=== PATIENT | female | born 1995 | race Caucasian/White ===

== ENCOUNTER 2018-04-14 10:23 | Inpatient (IN) | payer MEDICAID, SELFPAY ==
[2018-04-14 10:47] VITALS: BP 142/91; PULSE 116; RESP 18; TEMP 37.2; O2SAT 98; BMI 22.4; BMI 22.5
--- NOTE | 2018-04-14 11:45 | PCM.HP.STD ---
Problem List (1) Polysubstance abuse Status: Acute History of Present Illness Date of Admission: 04/14/18 Chief Complaint: wants to quit drugs The patient is a 22 year old F presents to [facility] for seeking drug treatment. Patient states that she uses methamphetamines and is a 2 days ago and has not slept since then. Patient initially states that she does not use heroin all time only to state that she uses it every day and shoots up. Initially said that she does not drink daily but then said that she drinks liquor per day. Patient's last drink was 3 shots of fireball 3 days ago. Patient's given going off on tangents about being too concerned about family and not knowing the whereabouts of her brother and mother. Also expressed concern about her baby daddy, ex-fianc? and ex-boyfriend who I believe are different people. [] Past Medical History Medical History: Medical History (Last Updated 04/14/18 @ 11:53 by Mac Rosa DO) Anxiety F41.9 Polysubstance (excluding opioids) dependence F19.20 Psychiatric History: No pertinent psych hx Lives: With Family Smoking Status: Heavy Smoker (>10/day) Tobacco Use: Cigarettes Alcohol: Heavy Drugs: Heroin, Marijuana, - - methamphetamines - *Family History Sibling History Items: - - alcoholic brother. Review of Systems Constitutional: Denies: Anorexia, Chills, Fever, Night Sweats Eyes: Denies: Blurred vision, Double vision HEENT: Denies: Head Aches, Sinus Congestion, Sinus Drainage Cardiovascular: Denies: Chest Pain, Palpitations Respiratory: Denies: Cough, Shortness of breath at rest, Sputum production Gastrointestinal: Denies: Abdominal Pain, Nausea, Vomiting Genitourinary: Denies: Dysuria Musculoskeletal: Denies: Joint Pain, Joint Tenderness Skin: Denies: Rash, Wounds Psychiatric: Denies: Anxiety, Depression Hematologic/ Lymphatic: Denies: Easy Bruising, Easy Bleeding Comment: All review of systems are negative except as mentioned in the history of present illness and the other review of systems. VTE Information - Inpt Only VTE Present on Admission: No VTE Mechan Device Prophylaxis: None VTE Pharm Prophylaxis ordered?: No Patient Problems: Active and Suspected Problems Polysubstance abuse (Acute) - Physical Exam General: Alert, - - Extremely anxious HEENT: Atraumatic, Normocephalic Oral: Moist Mucosa, No Gingival or Mucosal Lesions/ Ulcerations Neck: No Nodes, Thyroid Normal Size and Texture Lungs: Clear to auscultation, Normal air movement, No rhonchi, No wheeze Cardiovascular: Regular rate, Regular Rhythm, Normal S1, Normal S2, No murmurs Abdomen: Bowel Sounds Present, Soft, Non Tender, Non-Distended, No Hepato-splenomegaly Extremities: No edema, No Calf Tenderness Skin: No rashes, No breakdown Musculoskeletal: No Tenderness to Palpation of Joints or Extremities, No Muscle Wasting Psych/Mental Status: Normal Affect, Appropriate Vital Signs Temp Pulse Resp BP Pulse Ox 37.2 C 116 H 18 142/91 H 98 04/14/18 10:47 04/14/18 10:47 04/14/18 10:47 04/14/18 10:47 04/14/18 10:47 Oxygen Delivery Method Room Air Weight: 61.235 kg Body Mass Index (BMI) 22.4 Assessment/Plan All Active Problems Polysubstance abuse (Acute) 1. Polysubstance abuse Patient states that she shoots up heroin all the time but has no obvious track cheney. I am concerned that the patient's may not actually be using heroin as much as she states and may be just saying this so that she can be an and [facility]. She declines Subutex saying that she does not want it. It was explained to her that if she is in that I would not be able to keep ear for the allotted 3 days that is involved with the Subutex taper. Patient also states that she drinks 1-3 bottles of liquor per day. Initial reports that she did not drink that much but her last drink was 3 days ago. We will monitor I am not can put the patient on any Librium or Ativan at this time unless it becomes clear that patient is going through acute alcohol withdrawal which it certainly is not clear at this time. Patient certainly requires further management as outpatient for her polysubstance abuse. Patient describes a rather indiscriminate use of drugs, including bath salts, benzodiazepines and gabapentin [facility] to further facilitate Management 2. Anxiety I did discuss with the patient that she should be on something for anxiety but also seek out counseling. Did recommend Zoloft. Patient initially said no but then lined. I will start Zoloft but I would not be surprised the patient does decline it. Does need outpatient counseling as I feel that she may be self-medicating with her multiple drugs. Code Visit Inpatient E&M: 32705 Init Hosp L2
--- NOTE | 2018-04-14 11:49 | HP.PCM_ITS ---
Problem List (1) Polysubstance abuse Status: Acute History of Present Illness Date of Admission: 04/14/18 Chief Complaint: wants to quit drugs The patient is a 22 year old F presents to [facility] for seeking drug treatment. Patient states that she uses methamphetamines and is a 2 days ago and has not slept since then. Patient initially states that she does not use heroin all time only to state that she uses it every day and shoots up. Initially said that she does not drink daily but then said that she drinks liquor per day. Patient's last drink was 3 shots of fireball 3 days ago. Patient's given going off on tangents about being too concerned about family and not knowing the whereabouts of her brother and mother. Also expressed concern about her baby daddy, ex-fianc? and ex-boyfriend who I believe are different people. [] Past Medical History Medical History: Medical History (Last Updated 04/14/18 @ 11:53 by Mac Rosa DO) Anxiety F41.9 Polysubstance (excluding opioids) dependence F19.20 Psychiatric History: No pertinent psych hx Lives: With Family Smoking Status: Heavy Smoker (>10/day) Tobacco Use: Cigarettes Alcohol: Heavy Drugs: Heroin, Marijuana, - - methamphetamines - *Family History Sibling History Items: - - alcoholic brother. Review of Systems Constitutional: Denies: Anorexia, Chills, Fever, Night Sweats Eyes: Denies: Blurred vision, Double vision HEENT: Denies: Head Aches, Sinus Congestion, Sinus Drainage Cardiovascular: Denies: Chest Pain, Palpitations Respiratory: Denies: Cough, Shortness of breath at rest, Sputum production Gastrointestinal: Denies: Abdominal Pain, Nausea, Vomiting Genitourinary: Denies: Dysuria Musculoskeletal: Denies: Joint Pain, Joint Tenderness Skin: Denies: Rash, Wounds Psychiatric: Denies: Anxiety, Depression Hematologic/ Lymphatic: Denies: Easy Bruising, Easy Bleeding Comment: All review of systems are negative except as mentioned in the history of present illness and the other review of systems. VTE Information - Inpt Only VTE Present on Admission: No VTE Mechan Device Prophylaxis: None VTE Pharm Prophylaxis ordered?: No Patient Problems: Active and Suspected Problems Polysubstance abuse (Acute) - Physical Exam General: Alert, - - Extremely anxious HEENT: Atraumatic, Normocephalic Oral: Moist Mucosa, No Gingival or Mucosal Lesions/ Ulcerations Neck: No Nodes, Thyroid Normal Size and Texture Lungs: Clear to auscultation, Normal air movement, No rhonchi, No wheeze Cardiovascular: Regular rate, Regular Rhythm, Normal S1, Normal S2, No murmurs Abdomen: Bowel Sounds Present, Soft, Non Tender, Non-Distended, No Hepato- splenomegaly Extremities: No edema, No Calf Tenderness Skin: No rashes, No breakdown Musculoskeletal: No Tenderness to Palpation of Joints or Extremities, No Muscle Wasting Psych/Mental Status: Normal Affect, Appropriate Vital Signs Temp Pulse Resp BP Pulse Ox 37.2 C 116 H 18 142/91 H 98 04/14/18 10:47 04/14/18 10:47 04/14/18 10:47 04/14/18 10:47 04/14/18 10:47 Oxygen Delivery Method Room Air Weight: 61.235 kg Body Mass Index (BMI) 22.4 Assessment/Plan All Active Problems Polysubstance abuse (Acute) 1. Polysubstance abuse * Patient states that she shoots up heroin all the time but has no obvious track cheney. I am concerned that the patient's may not actually be using heroin as much as she states and may be just saying this so that she can be an and [facility]. She declines Subutex saying that she does not want it. It was explained to her that if she is in that I would not be able to keep ear for the allotted 3 days that is involved with the Subutex taper. * Patient also states that she drinks 1-3 bottles of liquor per day. Initial reports that she did not drink that much but her last drink was 3 days ago. We will monitor I am not can put the patient on any Librium or Ativan at this time unless it becomes clear that patient is going through acute alcohol withdrawal which it certainly is not clear at this time. * Patient certainly requires further management as outpatient for her polysubstance abuse. Patient describes a rather indiscriminate use of drugs, including bath salts, benzodiazepines and gabapentin * [facility] to further facilitate Management 2. Anxiety * I did discuss with the patient that she should be on something for anxiety but also seek out counseling. * Did recommend Zoloft. Patient initially said no but then lined. I will start Zoloft but I would not be surprised the patient does decline it. * Does need outpatient counseling as I feel that she may be self-medicating with her multiple drugs. Code Visit Inpatient E&M: 28460 Init Hosp L2
--- NOTE | 2018-04-14 11:49 | NURSING ---
NO VACCINATIONS TO RECORD
[2018-04-14 12:08] LABS: Absolute Lymphocyte Count 1.74 X10^3/ul (0.83-4.51); Basophil# 0.03 X10^3/uL; Basophil% 0.3 % (0-1); Eosinophil# 0.06 X10^3/uL; Eosinophils% 0.6 % (0-5); Hematocrit 43.4 % (37-47); Hemoglobin 14.9 g/dl (12.0-15.0); Lymphocyte # 1.74 X10^3/ul (4.0); Lymphocyte % 16.5 % (19-41); Mean Corp Hgb Conc 34.3 g/gl (32-36); Mean Corpuscular Hgb 30.2 pg (27.0-32.0); Mean Platelet Vol. 12.1 fl (6.2-12.0); Monocyte# 0.72 X10^3/uL; Monocyte% 6.8 % (0-10); Neutrophil # 7.99 X10^3/uL (2.7-7.7); Neutrophil % 75.6 % (47-70); Platelet Count 199 K/mm3 (150-450); RBC Distribution Width CV 12.6 % (11.6-14.6); RBC Distribution Width SD 40.7 fl (35.1-43.9); Red Blood Count 4.93 M/mm3 (4.2-5.4); White Blood Count 10.6 K/mm3 (4.4-11.0)
[2018-04-14 12:10] LABS: POSITIVE COUNT NO; POSITIVE DIFFERENTIAL NO; POSITIVE MORPHOLOGY NO
[2018-04-14 12:26] LABS: AST(SGOT) 15 U/L (15-37); Alanine Aminotransfer ALT/SGPT 18 U/L (13-56); Albumin, Serum 4.3 g/dL (3.2-5.0); Alkaline Phosphatase 114 U/L (45-117); Anion Gap 7 (5-15); BUN 14 mg/dL (7-18); BUN/Creat Ratio 19.1 RATIO (10-20); Calcium,Total 8.9 mg/dL (8.5-10.1); Chloride 104 mmol/L (98-107); Creatinine, Serum 0.73 mg/dL (0.55-1.02); EST Glomerular Filtration Rate 104 mL/min (>60); Est Glom Filt Rate - Afr Amer 126 mL/min (>60); Estimated Creatinine Clearance 107.85 ml/min; Globulin 4.1 g/dL (2.2-4.2); Glucose 79 mg/dL (74-106); Potassium 4.3 mmol/L (3.5-5.1); Protein, Total 8.4 g/dL (6.4-8.2); Sodium Level 137 mmol/L (136-145)
[2018-04-14 12:29] LABS: Pregnancy, Serum, hCG Quali. NEGATIVE Negative (0-9 Nonpreg)
[2018-04-14 14:00] VITALS: BP 142/91; PULSE 116; RESP 18; TEMP 37.2
--- NOTE | 2018-04-14 14:11 | DCINST_ITS ---
- Discharge Diagnoses Current Active Problems: Current Active and Chronic Problems (Last Updated 04/14/18 @ 11:53 by Mac Rosa DO) Polysubstance abuse (Acute) You will use the following diet at home:: No restrictions Your food should be the consistency of: Regular Your liquids should be the consistency of: Regular/Thin Discharge Activity: May not drive while taking narcotic pain medications., - - No driving while under the influence. Medications to take at Discharge Multivitamin [Daily Multiple Vitamin] 1 each PO DAILY #1 tablet 04/14/18 Sertraline HCl [Zoloft] 50 mg PO DAILY #30 tab 04/14/18 The following prescriptions were given: Multivitamin [Daily Multiple Vitamin] 1 each PO DAILY #1 tablet Sertraline HCl [Zoloft] 50 mg PO DAILY #30 tab Primary Care Physician: Care Physician,No Primary [Primary Care Provider] - Test Results: Test results from this visit will be discussed in further detail at your follow- up appointment, if applicable. Please Follow Up With: Psychiatry When: 1-2 weeks Proposed Discharge Date: 04/14/18
--- NOTE | 2018-04-14 14:14 | DS.PCM_ITS ---
Discharge Date and Diagnosis - Problem List Patient Problems: Active and Suspected Problems (Last Updated 04/14/18 @ 11:53 by Mac Rosa DO ) Anxiety (Acute) Polysubstance abuse (Acute) Date of Admission: 04/14/18 Date of Discharge: 04/14/18 - Primary Discharge Diagnosis Active and Suspected Problems (Last Updated 04/14/18 @ 11:53 by Mac Rosa DO ) Anxiety (Acute) Polysubstance abuse (Acute) Hospital Course and Treatment Summary of Care Provided: The patient is a 22 year old F presents seeking treatment for her drug abuse. History was essentially unreliable as is concerning the stating that she was drinking 1-2 bottles of liquor a day and injecting heroin but initial statements were to the contrary. Patient stated that you need to lie to stay in here. This is really unclear the patient was actually being truthful in regards to her intake of alcohol and heroin. Patient was very open that she indiscriminately use drugs whenever she can whenever and whatever she can get her hands on. Patient beginning was anxiety while she was here which she denied having an issue with but did express excessive worry over family and baby daddies, ex-fianc? and ex-boyfriend. Patient also expressed concern over her son too. Subutex was offered to the patient but she declined. Patient did agree initially to staying here to see how she would do with her alcohol withdrawal if indeed she does drink that much she should have some potentially more so withdrawal symptoms her last drink was 2-3 days prior to this hospitalization, though granted given the patient's already changing story, that history may be completely unreliable. Patient later stated that she wanted to go home and but did not express any suicidal or homicidal ideation. As this is a voluntary program and patient has patient at this time patient is being discharged. I did recommend the patient be on Zoloft. Is unclear the patient will actually take it or not patient certainly requires further psychiatric counseling. [] Discharge Diet: No Restrictions Discharge Activity: May not drive while taking narcotic pain medications., - - No driving while under the influence. Home Medications: Medications to take at Discharge Multivitamin [Daily Multiple Vitamin] 1 each PO DAILY #1 tablet 04/14/18 Sertraline HCl [Zoloft] 50 mg PO DAILY #30 tab 04/14/18 Following Prescrptions Were Given to Patient: Multivitamin [Daily Multiple Vitamin] 1 each PO DAILY #1 tablet Sertraline HCl [Zoloft] 50 mg PO DAILY #30 tab Primary Care Physician: Care Physician,No Primary [Primary Care Provider] - Please Follow Up With: Psychiatry When: 1-2 weeks Disposition: Home Minutes spent on discharge:: 45 Patient Condition:: Good Medical Necessity - Tobacco Use Smoking Status: Heavy Smoker (>10/day) Tobacco Use: Cigarettes Meaningful Use Info Meaningful Use Diagnoses (Choose all that apply): None applicable Code Visit OBSV E&M: 62393 Observ/hosp same date L2
--- NOTE | 2018-04-14 14:33 | NURSING ---
NURSE REPORTS PT HAVING MORE ANXIETY THEN ON ADMISSION. KENNETH WITH [facility] CAME TO TALK WITH PT AND HE RETURNED TO DESK AND REPORTED THAT SHE WAS JUST HOLLERING AT HIM WELL. THIS NURSE WENT BACK X2 AND THE PT WAS ON THE PHONE OBVIOUSLY VERY AGITATED. THE SECOND TIME I WENT IN, I FINALLY INTERRUPTED HER AND ASKED HER TO PUT METAL FRAMER LIGHT WHEN SHE WAS FINISHED ON PHONE THAT I WOULD LIKE TO SPEAK WITH HER, SHE NODDED. I THEN WENT BACK A 3RD TIME ALMOST 30 MINUTES LATER AND PT WAS STILL ON THE PHONE. DR TAYLOR WAS NOTIFIED BY NEIL Wray RN, PTS NURSE OF INCREASED AGITATION AND REFUSAL TO TAKE MEDS.
--- NOTE | 2018-04-14 15:15 | NURSING ---
PT REPORTS THAT SHE WOULD NOW LIKE TO STAY HER FOR THE [facility] PROGRAM. SHE IS AGREEABLE TO TAKE NECESSARY MEDS TO HELP HER THROUGH HER WITHDRAWAL. COMMUNICATION SENT TO DR TAYLOR
--- NOTE | 2018-04-14 15:38 | PCA ---
per anaid/rn and jose/rn this senior technical project manager is going to let pt be and not disturb because pt is highly anxious
--- NOTE | 2018-04-14 15:42 | NURSING ---
THIS NURSE SPOKE WITH NEIL, FARM MACHINERY ERECTOR AT [facility], REQUESTING [place] TO COME SPEAK WITH PT. DR TAYLOR AWARE.
--- NOTE | 2018-04-14 15:51 | NURSING ---
LATE ENTRY - 1330 - PT PULLED OUT IV, CRYING, ANXIOUS, STATING SHE DOES NOT WANT TO STAY HERE. PT STATES SHE DOES NOT WANT TO BE ALONE. KENNETH FROM [facility] NOTIFIED & HE CAME UP TO SPEAK WITH PATIENT. PT TELLING KENNETH SAME. DR TAYLOR NOTIFIED & RECEIVED ORDER TO DC PATIENT DUE TO PT REMOVING IV, REFUSING MEDICATIONS & WANTING TO LEAVE. SAME EXPLAINED TO PATIENT. 1500 - PT STATING SHE WANTS TO STAY HERE. WILLING TO ALLOW IV TO BE PLACED AGAIN & TAKE MEDICATIONS ORDERED. DR TAYLOR NOTIFIED OF SAME & DC ORDER CANCELLED. WILL NOTIFY [facility] TO SEE PT.
[2018-04-14 16:07] VITALS: BP 117/71; PULSE 107; RESP 18; TEMP 36.8; O2SAT 99
[2018-04-14] MEDS: hydrOXYzine PAM 25 MG Capsule 50 MG PO ×2 (16:13→22:39)
[2018-04-14] MEDS: Sertraline 50 MG Tablet PO (16:13)
[2018-04-14] MEDS: Folic Acid 1 MG Tablet PO (16:13)
[2018-04-14] MEDS: Lactated Ringers 1,000 ML 125 ML IV (16:15)
[2018-04-14] MEDS: Thiamine Hydrochloride 100 MG Tablet PO (16:55)
[2018-04-14 17:08] LABS: Amphetamine Urine VISTA POSITIVE (<1000 ng/mL); Barbiturate Urine VISTA NEGATIVE (< 200 ng/mL); Benzodiazepine Urine VISTA NEGATIVE (< 200 ng/mL); Cocaine Urine VISTA NEGATIVE (< 300 ng/mL); Ecstacy Urine VISTA NEGATIVE (< 500 ng/mL); Methadone Urine VISTA NEGATIVE (< 300 ng/mL); PCP Urine VISTA NEGATIVE (< 25 ng/mL); THC Urine VISTA NEGATIVE (< 50 ng/mL); Vista UDS pH Range 6
[2018-04-14 18:00] VITALS: BP 117/71; PULSE 107; RESP 18; TEMP 36.8
--- NOTE | 2018-04-14 19:45 | NURSING ---
Pt requested that she not be interrupted tonight, as she needs to sleep.
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
--- NOTE | 2018-04-14 21:00 | NURSING ---
pt pulled out IV, is very anxious, states that she does not want to stay here, she wants to go get her son. Pt was informed that she would need to sign ALEXANDER papers than she could leave. Pt than decided that she wanted to stay in the [facility] program. Pt refused to have any assessments completed at this time and refused her medications. pt states that she just wants to get some sleep.
[2018-04-14] MEDS: traZODone 50 MG Tablet PO (22:28)
--- NOTE | 2018-04-15 04:45 | NURSING ---
Pt left AMA at this time. Dr. Canada made aware.
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
--- NOTE | 2018-04-15 05:46 | NURSING ---
This RN contacted by security to come to the main lobby to speak to pt. Pt found sitting in chairs by main entrance. Pt alert and talking clearly and appropriately. Speech fast and with flight of ideas. 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 Encouraged to return to [facility] unit to receive counseling from [facility] staff. Pt refuses to return to unit. States she has to get to the [facility] to get to my son so I can show him I can do better. Pt walks out of main entrance with belongings and walks toward [facility].
--- NOTE | 2018-04-15 06:01 | PCM.PN.BLA ---
Progress Note Was notified that patient signed herself AMA at 4:45 AM. Patient was being treated for polysubstance withdrawal.
== END 2018-04-15 04:45 | disposition left against medical advice (07) | DRG 433 ==
DX: F19.939 Other psychoactive substance use, unspecified with withdrawal, unspecified (principal); F41.9 Anxiety disorder, unspecified
CPT/HCPCS: 36415; 80053; 80307; 84703; 85025; 97802; J7120; A4216

== ENCOUNTER 2018-04-15 13:07 | Emergency (ER) | payer MEDICAID, SELFPAY ==
[2018-04-15] VITALS (8 sets, daily range): BP systolic 113–128; BP diastolic 74–99; PULSE 66–85; RESP 16–18; TEMP 36.9; O2SAT 96–100; BMI 22.4
--- NOTE | 2018-04-15 13:48 | ED.RN ---
PT HAD BLOOD WORK YESTERDAY HERE FOR ADMISSION. PT REFUSED MORE BLOOD WORK. DR. PADRON AWARE AND IS OKAY USING YESTERDAY'S BLOOD. NEW URINE PROVIDED AND SENT. PT IN ROOM, IN GOWN, CLOTHES REMOVED. DOOR OPEN. PT RESTING COMFORTABLY IN BED WITH BLANKETS.
--- NOTE | 2018-04-15 13:51 | ED.RN ---
DR. PADRON REITERATED NO NEED FOR 1:1 SITTER. PT DENIES SUICIDAL IDEATIONS.
[2018-04-15 14:11] LABS: Amphetamine Urine VISTA POSITIVE (<1000 ng/mL); Barbiturate Urine VISTA NEGATIVE (< 200 ng/mL); Benzodiazepine Urine VISTA NEGATIVE (< 200 ng/mL); Cocaine Urine VISTA NEGATIVE (< 300 ng/mL); Ecstacy Urine VISTA POSITIVE (< 500 ng/mL); Methadone Urine VISTA NEGATIVE (< 300 ng/mL); PCP Urine VISTA NEGATIVE (< 25 ng/mL); THC Urine VISTA NEGATIVE (< 50 ng/mL); Vista UDS pH Range 6
--- NOTE | 2018-04-15 14:18 | ED.RN ---
[facility] CALLED AND SOMEONE WILL BE OVER SOON TO EVAL PT
--- NOTE | 2018-04-15 16:13 | ED.VISSUMM ---
- ER Visit Summary Date of Service: 04/15/18 Chief Complaint: I want to talk to a psychiatrist History of Present Illness: The patient is a 22 F with a history of crystal meth abuse presents requesting to talk to a psychiatrist. She denies suicidal thoughts or ideation. She states that she has been feeling paranoid and wants to talk to somebody about it. Denies hallucinations. Physical Examination: There is no evidence of head trauma. Vitals are within normal limits. Lungs are clear bilaterally. Heart tones are regular and without murmur. Abdomen is soft and nontender. No focal or lateralizing neuro findings. Test Results: Tox screen is positive for methamphetamines. HCG is negative Emergency Department Course and Treatment: She is being evaluated by mental health. Care will be turned over to the oncoming physician Treatment Plan: Mental health evaluation in the emergency department Disposition: Pending mental health evaluation Impression: Initial encounter methamphetamine abuse This note was generated with [employer] dictation software. It may contain incorrect words, spelling, and punctuation that were not noted in review of the chart prior to signing ED Disposition - Plan for ED Patient: Chief Complaint: Mental Health Referrals: Care Physician,No Primary [Primary Care Provider] -
--- NOTE | 2018-04-15 18:35 | ED.VISSUMM ---
- ER Visit Summary Date of Service: 04/15/18 Prior to the patient being discharged, she endorsed that she now was having feelings of suicidality. At this point crisis feels the patient requires to be psychiatrically admitted. They will pursue this disposition. This note was generated with [employer] dictation software. It may contain incorrect words, spelling, and punctuation that were not noted in review of the chart prior to signing ED Disposition - Plan for ED Patient: Disposition: Home or Assisted Living Chief Complaint: Mental Health Diagnosis: Substance abuse Instructions: ED Drug Abuse General Additional Instructions: Followup with 180 as soon as possible.
--- NOTE | 2018-04-15 18:59 | ED.RN ---
pT GIVEN BACK TWO BAGS OF CLOTHES THAT SHE HAD WITH HER TODAY AND AN ADDITIONAL TWO BAGS OF CLOTHES THAT SHE LEFT BEHIND WHEN SHE LEFT AMA YESTERDAY. PT ASKED FOR A PAIN PILL, REQUESTED DENIED. ASKED IF SHE WOULD LIKE AN ADVIL/TYLENOL AND PT REFUSED. PT ASKED WHY SHE WAS GETTING DISCHARGED, EDUCATED PT ON REFUSING FURTHER PSYCHIATRIC HELP AND DETOX, THESE ARE THE ONLY SERVICES SHE COULD QUALIFY FOR TODAY. PT NOT MOTIVATED TO GET DRESSED. TOLD MULTIPLE TIMES TO GET DRESSED. PARENTS WILL TAKE PATIENT HOME.
--- NOTE | 2018-04-15 19:05 | ED.RN ---
PT IS REFUSING TO LEAVE. PT IS REQUESTING PAIN MEDICINE WHICH WAS EXPLAINED THAT THAT IS NOT POSSIBLE.. PT THEN REQUESTED THAT WE GIVE HER METH AND THEN SHE WILL LEAVE. CONTINUED TO ENCOURAGE HER TO GET HELP AND AND SHE CONTINUES TO REFUSE. MOTHER IS NOW AT BEDSIDE TRYING TO ENCOURAGE HER TO LEAVE.
--- NOTE | 2018-04-15 19:10 | ED.RN ---
ALINA HRO AND SECURITY AT BEDSIDE WITH MOM AND DAD TO ENCOURAGE PTS DISCHARGE.
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
--- NOTE | 2018-04-15 23:27 | NURSING ---
Jessica from crisis said we dont have to draw her blood. will use yesterday
[2018-04-16] VITALS (13 sets, daily range): BP systolic 102–125; BP diastolic 61–75; PULSE 72–91; RESP 15–19; O2SAT 96–100
--- NOTE | 2018-04-16 04:06 | EKG12_ITS ---
Test Reason : Blood Pressure : / mmHG Vent. Rate : 075 BPM Atrial Rate : 075 BPM P-R Int : 134 ms QRS Dur : 082 ms QT Int : 366 ms P-R-T Axes : 060 073 061 degrees QTc Int : 408 ms Normal sinus rhythm with sinus arrhythmia Normal ECG Confirmed by PEPE MUHAMMAD, ARIADNE ([id number]), content editor ONEYDA TAPIA ([id number] on 04/21/2018 9:07:14 AM Referred By: ELIANA Confirmed By:ARIADNE CANTU MD
[2018-04-16 04:10] LABS: Absolute Neutrophil Count 6.4 X10^3/uL (2.0-7.7); Basophil# 0.02 X10^3/uL; Basophil% 0.2 % (0-1); Eosinophil# 0.14 X10^3/uL; Eosinophils% 1.5 % (0-5); Hematocrit 39.4 % (37-47); Hemoglobin 13.4 g/dl (12.0-15.0); Lymphocyte % 22.1 % (19-41); Mean Corpuscular Hgb 29.8 pg (27.0-32.0); Mean Corpuscular Volume 87.8 fL (81-99); Mean Platelet Vol. 11.7 fl (6.2-12.0); Monocyte# 0.52 X10^3/uL; Monocyte% 5.7 % (0-10); Neutrophil # 6.37 X10^3/uL (2.7-7.7); Neutrophil % 70.4 % (47-70); POSITIVE COUNT NO; POSITIVE DIFFERENTIAL NO; POSITIVE MORPHOLOGY NO; Platelet Count 180 K/mm3 (150-450); RBC Distribution Width CV 12.4 % (11.6-14.6); RBC Distribution Width SD 39.8 fl (35.1-43.9); Red Blood Count 4.49 M/mm3 (4.2-5.4); White Blood Count 9.1 K/mm3 (4.4-11.0)
[2018-04-16 04:27] LABS: Alcohol, Blood (Medical)-Serum < 3.0 mg/dL; Anion Gap 9 (5-15); BUN 15 mg/dL (7-18); Calcium,Total 8.6 mg/dL (8.5-10.1); Chloride 107 mmol/L (98-107); Creatinine, Serum 0.79 mg/dL (0.55-1.02); EST Glomerular Filtration Rate 96 mL/min (>60); Est Glom Filt Rate - Afr Amer 116 mL/min (>60); Estimated Creatinine Clearance 99.66 ml/min; Glucose 110 mg/dL (74-106); Potassium 3.8 mmol/L (3.5-5.1); Sodium Level 142 mmol/L (136-145)
[2018-04-16 04:38] LABS: Pregnancy, Serum, hCG Quali. NEGATIVE Negative (0-9 Nonpreg)
--- NOTE | 2018-04-16 07:16 | ED.DCSUM_ITS ---
- ER Visit Summary Date of Service: 04/16/18 Chief Complaint: [] History of Present Illness: The patient is a 22 F [] Physical Examination: [] Test Results: [] Emergency Department Course and Treatment: I assumed patient's care as of ThursdayApril 16 at 0 700 a.m. Patient was acting out yelling and screaming. Cursing. I went in to address any concerns she may have and try to de-escalate the situation. She screen for everyone to get out. And began cursing. She will be given IM Geodon. And restrained in order to prevent harming herself, other patients and the ED staff. Treatment Plan: [] Disposition: [] Impression: [] This note was generated with [employer] dictation software. It may contain incorrect words, spelling, and punctuation that were not noted in review of the chart prior to signing ED Disposition - Plan for ED Patient: Disposition: Home or Assisted Living Chief Complaint: Mental Health Diagnosis: Substance abuse Instructions: ED Drug Abuse General Referrals: Care Physician,No Primary [Primary Care Provider] - Additional Instructions: Followup with 180 as soon as possible.
[2018-04-16] MEDS: Ziprasidone IM 20 MG/ML VIAL IM (07:18)
--- NOTE | 2018-04-16 09:54 | ED.RN ---
[facility] WILL CALL US BACK
--- NOTE | 2018-04-16 10:47 | ED.RN ---
WAITING ON ACCEPTANCE FROM [facility] PER TEX Pres[facility] WITH CRISIS
--- NOTE | 2018-04-16 11:00 | ED.RN ---
BED AT [facility], [address], DR. VARELA [phone] EXT [phone]
== END 2018-04-16 12:02 ==
PROVIDERS: Emergency Provider Emergency Medicine
DX: F15.10 Other stimulant abuse, uncomplicated (principal); F41.9 Anxiety disorder, unspecified; Z72.0 Tobacco use
CPT/HCPCS: 80048; 80307; 80320; 84703; 85025; 93005; 99285; G0480; J3486